=== PATIENT | male | born 2005 | race Caucasian/White ===

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

== ENCOUNTER → 2023-03-06 15:35 | Outpatient (CLI) | payer OTHER, SELFPAY | PROVIDERS: PCP Family Medicine; Referring Provider Family Medicine; Visit Provider Family Medicine | DX: Z23 Encounter for immunization (principal) | CPT/HCPCS: 90471; 90686 ==

== ENCOUNTER → 2023-05-06 14:30 | Outpatient (CLI) | payer OTHER, SELFPAY ==
[2023-05-06 15:23] LABS: Influenza A - CEPHEID Flu A NEGATIVE (NEGATIVE); Influenza B - CEPHEID Flu B NEGATIVE (NEGATIVE); Respiratory Syncytial Virus Negative (Negative)
[2023-05-06 15:46] LABS: COVID-19 CEPHEID 4-PLEX PCR Negative (Negative)
== END ==
PROVIDERS: PCP Family Medicine; Visit Provider Nurse Practitioner Family
DX: R05.1 Acute cough (principal)
CPT/HCPCS: 0241U

== ENCOUNTER 2023-08-31 21:29 | Emergency (ER) | payer OTHER, SELFPAY ==
[2023-08-31 21:30] VITALS: BP 134/75; PULSE 84; RESP 18; TEMP 37; O2SAT 98; BMI 28.5
--- NOTE | 2023-08-31 23:07 | ED_ITS ---
HPI - Extremity Injury (Lower) General Chief Complaint: Extremity Injury, Lower Stated Complaint: rt calf injury Time Seen by Provider: 08/31/23 23:07 Source: patient Mode of arrival: Ambulatory History of Present Illness HPI Narrative: 18-year-old young man with a history of HAJI, ADD and depression was running today doing sprints, having fun a notes that he probably has not done a workout like that for 2-3 years and has not participated in any formal sports since he graduated from high school. Had acute right calf pain and it felt like somebody shot and with a gun. There was no obvious trauma the cause this. There was no knee pain no ankle injury he has significant calf tenderness to palpation without significant erythema, warmth or edema. Related Data Previous Rx's Medication Instructions Recorded bupropion HCl 100 mg tablet,12 hr 100 mg PO DAILY #90 ea 04/13/23 sustained-release dextroamphetamine-amphetamine ER 10 mg PO DAILY #15 caps 06/02/23 10 mg 24hr capsule,extend release (Adderall XR) dextroamphetamine-amphetamine ER 20 mg PO DAILY #15 caps 06/02/23 20 mg 24hr capsule,extend release (Adderall XR) oxycodone 5 mg tablet 5 mg PO Q6H PRN pain #10 tabs 09/01/23 Allergies Allergy/AdvReac Type Severity Reaction Status Date / Time No Known Drug Allergies Allergy Verified 08/31/23 21:30 Review of Systems Review of Systems Narrative: Pertinent positive and negative findings as per HPI Patient History Medical History Depression Well adult exam Steatosis of liver Elevated liver function tests Near syncope Right upper quadrant abdominal pain ADHD (attention deficit hyperactivity disorder), combined type (~2011) Acne vulgaris Social History Smoking Status: Never smoker Smoking Status: Never smoker Substance Use Type: marijuana Exam Initial Vital Signs Initial Vital Signs: Vital Signs Temperature 98.6 F 08/31/23 21:30 Pulse Rate 84 08/31/23 21:30 Respiratory Rate 18 08/31/23 21:30 Blood Pressure 134/75 08/31/23 21:30 Pulse Oximetry 98 08/31/23 21:30 Oxygen Delivery Method Room Air 08/31/23 21:30 General: Alert appropriate in no acute distress Respiratory: Able to speak in full sentences, no obvious respiratory distress Skin: No obvious rashes, warm and dry Neurologic: Grossly intact no obvious asymmetries or abnormalities Psych: appropriate insight and affect, cooperative Extremity: Right knee is unremarkable, ankle and foot are unremarkable. No tenderness specifically with palpation along the Achilles tendon. Tenderness with palpation of the gastroc belly itself that does not radiate up to the popliteal fossa. Course Vital Signs Vital signs: Vital Signs - 8 hr 08/31/23 21:30 08/31/23 23:31 Temperature 98.6 F Pulse Rate 84 89 Respiratory Rate 18 16 Blood Pressure 134/75 128/64 Pulse Oximetry 98 98 Oxygen Delivery Method Room Air Room Air MDM - Extremity Injury (Lower) MDM Narrative Medical decision making narrative: CC: Acute right calf pain Complicating co-morbidities: Decreased overall activity levels, Haji, ADHD Data collected from: patient , mother Differential considered: Acute knee injury, ankle injury, gastroc tear. Given acute onset and description of pain DVT is far less likely. I do not suspect infection Exam documented above, pertinent findings include: Significant tenderness with palpation of the gastroc. Knee ankle and Achilles tendon are otherwise unremarkable Treatments: Patient to take 800 mg of ibuprofen prior to arrival. His leg is wrapped with an elastic wrap for compression and pain control. He is given 5 mg of oxycodone. Discussion: 18-year-old gentleman with clinical signs symptoms and presentation consistent with acute gastroc tear right side. Talked about ice, elevation, compression. We discussed getting a knee scooter that may be helpful for a week or so. He is given crutches. Because of his HAJI his physicians have told him to avoid Tylenol. We will recommend 600 mg of ibuprofen and have given him 10 tablets of oxycodone to use for severe pain control. Did review use of narcotics, constipation and addiction potential. Recommended buying compression socks and reviewed anticipated recovery over the next 6 weeks. Did recommend follow up with [facility] and 2 days off work. 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 Questions are answered he is safe for discharge Discharge Plan Departure Patient Disposition: Home Clinical Impression: Gastrocnemius muscle tear Qualifiers: Encounter type: initial encounter Laterality: right Qualified Code(s): S86.111A - Strain of other muscle(s) and tendon(s) of posterior muscle group at lower leg level, right leg, initial encounter Instructions: DI for Calf Muscle Strain Activity Restrictions/Additional Instructions: Thank you for coming in today Based on your history and physical exam I believe you have torn your gastric (calf) muscle. Using 600 mg of ibuprofen for moderate amount of pain we will be appropriate. I am going to give you 10 additional tablets of oxycodone. This is a narcotic pain medication, has a potential for addiction, will cause constipation and should be taken with caution. We have given you crutches to use as needed. You may want to look into knee wheeled walker. It may make you more mobile and easier to get around while you are still dealing with some of the pain. Ice and compression we will be helpful. Consider buying some compression socks like are sold for runners. Please keep the foot elevated. Please contact [facility] at [phone] to schedule follow up appointment. If you find that you are getting worse or develop any new symptoms, please feel free to return to the emergency department for further evaluation. Prescriptions: New oxycodone 5 mg tablet 5 mg PO Q6H PRN (Reason: pain) Qty: 10 0RF No Action bupropion HCl 100 mg tablet sustained-release 12 hr 100 mg PO DAILY Qty: 90 3RF dextroamphetamine-amphetamine [Adderall XR] 10 mg capsule,extended release 24hr 10 mg PO DAILY Qty: 15 0RF Rx Instructions: Start this dose 1st dextroamphetamine-amphetamine [Adderall XR] 20 mg capsule,extended release 24hr 20 mg PO DAILY Qty: 15 0RF Rx Instructions: Start this dose to after completing the course of 10 mg Referrals: Miscellaneous,Doctor, MD [Primary Care Provider] - Stand Alone Forms: Patient Portal/API, Work Release Note
[2023-08-31 23:31] VITALS: BP 128/64; PULSE 89; RESP 16; O2SAT 98
[2023-09-01] MEDS: OXYCODONE IR 5 MG TABLET PO (00:53)
[2023-09-01 01:28] VITALS: BP 135/75; PULSE 85; RESP 18; TEMP 36.9; O2SAT 97
== END 2023-09-01 01:30 | disposition home or self-care (01) ==
PROVIDERS: Emergency Provider Emergency Medicine
DX: S86.111A Strain of other muscle(s) and tendon(s) of posterior muscle group at lower leg level, right leg, initial encounter (principal); X50.9XXA Other and unspecified overexertion or strenuous movements or postures, initial encounter; Y93.02 Activity, running
CPT/HCPCS: 99283

== ENCOUNTER → 2023-10-26 18:30 | Outpatient (CLI) | payer OTHER, SELFPAY ==
--- NOTE | 2023-10-26 18:32 | DI.RAD.S_ITS ---
PROCEDURE: XR SHOULDER RT MIN 2V INDICATIONS: Cervical neck pain, cervical radiculopathy, R shoulder pain TECHNIQUE: 3 views of the shoulder were acquired. COMPARISON: None. FINDINGS: Bones: No fractures or dislocations. No suspicious bony lesions. Visualized ribs appear intact. Soft tissues: No suspicious soft tissue calcifications. IMPRESSION: Normal right shoulder. Dictated by: Seven Talbert M.D. on 10/27/2023 at 13:43 Approved by: Seven Talbert M.D. on 10/27/2023 at 13:57
--- NOTE | 2023-10-26 18:32 | DI.RAD.S_ITS ---
PROCEDURE: XR CERVICAL SPINE 4V OR 5V INDICATIONS: Cervical neck pain, cervical radiculopathy, R shoulder pain TECHNIQUE: 5 views of the cervical spine were acquired. COMPARISON: None. FINDINGS: Bones: No fractures or dislocations to the C7 level. Straightening of the normal cervical lordosis. No suspicious bony lesions. There is normal range of motion between flexion and extension, with preserved normal bony alignment. Soft tissues: Prevertebral soft tissues are normal in thickness. IMPRESSION: No significant degenerative changes. Straightening of the normal cervical lordosis. Normal range of motion. Dictated by: Richard Prince M.D. on 10/26/2023 at 19:11 Approved by: Richard Prince M.D. on 10/26/2023 at 19:12
== END ==
LOC: RAD 18:32
PROVIDERS: Referring Provider Physician Assistant Surgical; Visit Provider Physician Assistant Surgical
DX: M54.12 Radiculopathy, cervical region (principal); S49.90XA Unspecified injury of shoulder and upper arm, unspecified arm, initial encounter; X58.XXXA Exposure to other specified factors, initial encounter
CPT/HCPCS: 72050; 73030